=== PATIENT | male | born 1985 | race Caucasian/White ===

== ENCOUNTER 2016-10-03 01:46 | Emergency (ER) | payer OTHER ==
[~2016-10-03] VITALS: Ht 182.9 cm; Wt 80.4 kg
[~2016-10-03 01:46] MED LIST: ACET650S12 PR; ACYC-114 PO; AMPI3VIA IV; ERYT1OIN5 EACHEYE; IBUP200C PO; MEGA MEN VITAMIN PO; ONDA4TAB13 SL; OXYC5CAP4 PO; POTA10TA PO
[2016-10-03 01:47] VITALS: BP 144/87
[2016-10-03] MEDS ORDERED: DEXAMETHASONE 4 MG TABLET ONE (02:26)
[2016-10-03] MEDS ORDERED: DEXAMETHASONE 4 MG/ML, 1ML PO ONE (02:30)
== END 2016-10-03 03:24 | disposition home or self-care (01) ==
LOC: ED 03:12
DX: J02.8 Acute pharyngitis due to other specified organisms (principal); B97.89 Other viral agents as the cause of diseases classified elsewhere; I10 Essential (primary) hypertension
CPT/HCPCS: 87081; 87880; 99284; J1100

== ENCOUNTER 2017-12-17 10:30 | Emergency (ER) | payer OTHER ==
[~2017-12-17] VITALS: Ht 182.9 cm; Wt 80.8 kg
[~2017-12-17 10:30] MED LIST changes: -IBUP200C PO; +IBUP200C5 PO; +OXYC5CAP2 PO; -OXYC5CAP4 PO
[2017-12-17 11:29] LABS: BASOPHILS # (AUTO) 0.03 x10^3/uL (0-0.1); BASOPHILS % (AUTO) 1 % (0-1); EOSINOPHILS # (AUTO) 0.23 x10^3/uL (0-0.4); EOSINOPHILS % (AUTO) 5 % (1-7); LYMPHOCYTES # (AUTO) 0.73 x10^3/uL (1-3.4); LYMPHOCYTES % (AUTO) 16 % (22-44); MD NO; MEAN CORPUSCULAR HEMOGLOBIN 29.9 pg (27.5-34.5); MEAN CORPUSCULAR HGB CONC 34.2 g/dL (33.2-36.2); MEAN CORPUSCULAR VOLUME 87.3 fL (81-97); MEAN PLATELET VOLUME 8.2 fL (7.4-10.4); MONOCYTES # (AUTO) 0.52 x10^3/uL (0.2-0.8); MONOCYTES % (AUTO) 11 % (2-9); NEUTROPHILS # (AUTO) 3.05 x10^3/uL (1.8-6.8); NEUTROPHILS % (AUTO) 67 % (42-75); PLATELET COUNT 189 x10^3/uL (130-400); RED BLOOD COUNT 5.25 x10^6/uL (4.38-5.82); RED CELL DISTRIBUTION WIDTH 13.4 % (9.4-14.8)
[2017-12-17 11:41] LABS: ALBUMIN 3.8 g/dL (3.4-5.0); ANION GAP 7 mmol/L (5-15); CALCIUM 8.6 mg/dL (8.5-10.1); CHLORIDE 110 mmol/L (98-107)
[2017-12-17 11:45] LABS: ALANINE AMINOTRANSFERASE 39 U/L (12-78); ALKALINE PHOSPHATASE 57 U/L (45-117); BILIRUBIN,TOTAL 1.6 mg/dL (0.2-1.0); CREATININE 1.07 mg/dL (0.7-1.3); TOTAL PROTEIN 7.7 g/dL (6.4-8.2)
[2017-12-17 12:18] VITALS: BP 139/99
[2017-12-17 12:24] LABS: MICROSCOPIC NOT IND
[2017-12-17 12:38] LABS: CULTURE INDICATED? NO
== END 2017-12-17 13:41 | disposition home or self-care (01) ==
LOC: ED 13:00
DX: R10.12 Left upper quadrant pain (principal); R63.0 Anorexia; I10 Essential (primary) hypertension
CPT/HCPCS: 36415; 80053; 81003; 83690; 85025; 99284

== ENCOUNTER 2020-04-06 11:06 | Outpatient (CLI) | payer OTHER ==
[~2020-04-06 11:06] MED LIST changes: +IBUP-1623 PO; -IBUP200C5 PO
== END 2020-04-06 23:59 | disposition home or self-care (01) ==
LOC: RAD 11:06
PROVIDERS: ATTEND Family Medicine
DX: N50.812 Left testicular pain (principal)
CPT/HCPCS: 76870